=== PATIENT | female | born 1975 | race Caucasian/White ===

== ENCOUNTER 2017-07-28 09:41 | Inpatient (IN) ==
--- NOTE | 2017-07-28 08:32 | Discharge Summary ---
<Vicenta Buckley - Last Filed: 07/28/17 08:28> Orders not resulted at time of discharge: Pending orders 07/28/17 08:28 XR hip complete RT [XR] Routine H/H [Hemoglobin and Hematocrit] [HEME] Routine Date of Encounter: 07/28/17 - Discharge Diagnosis (1) Arthritis of right hip Priority: Primary Status: Acute (2) Status post total hip replacement, right Priority: Primary Status: Acute (3) HTN (hypertension) Priority: Secondary Status: Chronic Qualifiers: Hypertension type: essential hypertension Qualified Code(s): I10 - Essential (primary) hypertension (4) Obesity Priority: Secondary Status: Chronic Qualifiers: Obesity type: unspecified obesity type Obesity classification: unspecified obesity classification Serious obesity comorbidity presence: without serious comorbidity Qualified Code(s): E66.9 - Obesity, unspecified - Hospital Course Hospital course: Ms. Hernández is a 42 year old female - Time Spent with Patient Total time spent providing and/or coordinating discharge services: - Discharge Medications Home Medications: Aspirin Enteric Coated [Aspirin EC] 325 mg PO BID #20 tablet. 07/28/17 [Rx] BuPROPion SR (12 HR) [Wellbutrin SR] 150 mg PO BID 07/28/17 [History] Etonogestrel/Ethinyl Estradiol [Nuvaring Vaginal Ring] 1 each VG QMONTH [History] Furosemide [Lasix] 20 mg PO DAILY PRN 07/28/17 [History] HYDROcodone/Acet 5/325 mg [[place] 5-325 mg] 1 tab PO Q6H PRN 07/28/17 [History] OxyCODONE Immed Rel [Roxicodone 5 MG] 5 mg PO Q6HR PRN 7 Days #28 tablet [Rx] hydroCHLOROthiazide [Hydrochlorothiazide] 25 mg PO DAILY 07/28/17 [History] Allergies/Adverse Reactions: 3 Allergy/AdvReac Type Severity Reaction Status Date / Time azithromycin [From Zithromax] AdvReac Gastrointestinal Verified 07/14/17 15:13 Upset ciprofloxacin AdvReac Gastrointestinal Verified 07/14/17 15:13 Upset Primary care physician: Candis Aleman - Patient Status Disposition: Home Health Service Condition: Good - Discharge Instructions Follow Up With: Candis Aleman MD [Primary Care Provider] - <BobbyJarad Piper - Last Filed: 07/29/17 07:57> Orders not resulted at time of discharge: Pending orders 07/28/17 08:28 XR hip complete RT [XR] Routine H/H [Hemoglobin and Hematocrit] [HEME] Routine 07/28/17 10:14 POC Urine [POC] Stat Date of Encounter: 07/29/17 Time of Encounter: 07:57 - Discharge Diagnosis (1) Morbid obesity with BMI of 40.0-44.9, adult Priority: Secondary Status: Chronic (2) Arthritis of right hip Priority: Primary Status: Chronic (3) Status post total hip replacement, right Priority: Primary Status: Acute (4) HTN (hypertension) Priority: Secondary Status: Chronic Qualifiers: Hypertension type: essential hypertension Qualified Code(s): I10 - Essential (primary) hypertension - Hospital Course Hospital course: Ms. Hernández is a 42 year old female Status post right total hip replacement The patient had an uneventful postoperative course. They received antibiotics and physical therapy and were discharged in stable condition. There will follow -up in the office in 2 weeks. - Time Spent with Patient Total time spent providing and/or coordinating discharge services: Primary care physician: Candis Aleman - Patient Status Functional capacity at discharge: uses cane/walker Overall status at discharge: patient is progressing back to baseline
[~2017-07-28 09:41] MED LIST: *HR* Enoxaparin 30 MG/0.3 ML SYRINGE SQ SCH
[2017-07-28] MEDS ORDERED: CeFAZolin Syr 2,000MG/20 ML 2,000 MG/20 ML SYRINGE IVPB ONE (09:59)
[2017-07-28] MEDS ORDERED: Ringers Solution, Lactated 1,000 ML IVC SCH ×2 (10:00→14:14)
--- NOTE | 2017-07-28 10:13 | History & Physical Report ---
Date of Encounter: 07/28/17 Time of Encounter: 10:12 24 Hour HP Update - Instructions Instructions: If the History and Physical is less than 30 days old and was completed prior to A.M. admission and or procedure and has NOT been updated on calendar day of procedure please complete this update prior to performing procedure. - Update Patient reports changes in Medical Condition: No Changes in examination, assessment, or condition: No Changes in Medication: No Preop tests/diagnostics Reviewed: Yes Surgery Remains Indicated: Yes Consent for Planned Operative Procedure(s) Verified: Yes - Pre-Operative Checklist Preoperative Checklist Indicated: No Prophylactic Antibiotic Ordered: Yes Is VTE Prophylaxis Indicated?: Yes
[2017-07-28] MEDS ORDERED: *HR* OxyCODONE/APAP 5/325 TABLET PO PRN ×2 (10:37→14:14)
[2017-07-28] MEDS ORDERED: Ondansetron 4 MG/2 ML VIAL IVP PRN ×2 (10:37→14:14)
--- NOTE | 2017-07-28 10:40 | Anesthesia Evaluation PreOp ---
Date of Encounter: 07/28/17 Time of Encounter: 10:38 - Past History Planned Operation: Robotic right total hip arthroplasty Cardiac History: Denies any Significant Hx Pulmonary History: YAZMIN Dx (does not use CPAP) [employer] History: Other (depression, migraines) Other Medical History: Diabetes Type II (pre-diabetic, takes no medications), Other (BMI 42) Anesthesia History: Problems (nausea with general anesthesia) Alcohol Use: none Drug use: none Medications and Allergies Aspirin Enteric Coated [Aspirin EC] 325 mg PO BID #20 tablet. 07/28/17 [Rx] BuPROPion SR (12 HR) [Wellbutrin SR] 150 mg PO BID 07/28/17 [History] Etonogestrel/Ethinyl Estradiol [Nuvaring Vaginal Ring] 1 each VG QMONTH [History] Furosemide [Lasix] 20 mg PO DAILY PRN 07/28/17 [History] HYDROcodone/Acet 5/325 mg [[place] 5-325 mg] 1 tab PO Q6H PRN 07/28/17 [History] OxyCODONE Immed Rel [Roxicodone 5 MG] 5 mg PO Q6HR PRN 7 Days #28 tablet [Rx] hydroCHLOROthiazide [Hydrochlorothiazide] 25 mg PO DAILY 07/28/17 [History] 3 Allergy/AdvReac Type Severity Reaction Status Date / Time azithromycin [From Zithromax] AdvReac Gastrointestinal Verified 07/14/17 15:13 Upset ciprofloxacin AdvReac Gastrointestinal Verified 07/14/17 15:13 Upset - Meds/Allergy Pre-op Review Medications Reviewed: Yes Allergies Reviewed: Yes Beta Blockers on Current Med List: No Anesthesia Results - Labs Laboratory Tests 07/14/17 07/14/17 07/14/17 16:08 16:08 16:08 WBC 6.5 Hgb 14.0 Hct 43.2 Plt Count 242 PT 10.6 INR 1.0 APTT 28.2 Potassium 3.5 Chloride 110 H Carbon Dioxide 26 BUN 17 Creatinine 0.55 L Est GFR ( Amer) > 60 Est GFR (Non-Af Amer) > 60 BUN/Creatinine Ratio 31 H Est Mean Plasma Glucose Serum , Qual 07/14/17 07/14/17 16:08 16:08 WBC Hgb Hct Plt Count PT INR APTT Potassium Chloride Carbon Dioxide BUN Creatinine Est GFR ( Amer) Est GFR (Non-Af Amer) BUN/Creatinine Ratio Est Mean Plasma Glucose 137 Serum , Qual Negative - Imaging EKG: report reviewed, image reviewed (SR) Anesthesia Exam Last Vital Signs Temp 98.5 F 07/28/17 10:16 Pulse 99 07/28/17 10:16 Resp 18 07/28/17 10:16 BP 127/84 07/28/17 10:16 Pulse Ox 96 07/28/17 10:16 Weight: 106 kg NPO (# of Hours): > 8 hrs - HEENT Pupil (Motor): Pupils equal, EOMI Mallampati: III Teeth: Normal - [employer] LOC: Oriented - Cardiac Rhythm: Regular Murmur: None - Pulmonary Breath Sounds: bilateral Clear Respiratory Effort: Symmetrical Anesthesia Assess/Plan ASA Score: 3 Modified [place] Scale for Level of Consciousness: Cooperative, oriented, and tranquil Anesthetic Plan: General (Plan B - if need to do general (if spinal does not work), will add scop patch), Regional (Spinal with intrathecal PF morphine with sedation is Plan A), MAC (Spinal with MAC is plan A) Monitoring Plan: Standard Monitors Recovery Plan: PACU
[2017-07-28] MEDS ORDERED: Lidocaine -MPF 2% 2 ML VIAL ONE ×2 (10:41→10:42)
[2017-07-28] MEDS ORDERED: Dexamethasone 4 MG/ML VIAL ONE (10:41)
[2017-07-28] MEDS ORDERED: Ondansetron 4 MG/2 ML VIAL ONE (10:41)
[2017-07-28] MEDS ORDERED: *HR* Midazolam HCl 2 MG/2 ML VIAL ONE (10:42)
[2017-07-28] MEDS ORDERED: *HR* Propofol 200 MG/20 ML VIAL IVP ONE ×3 (10:42→13:14)
[2017-07-28] MEDS ORDERED: *HR* FentaNYL (PF) 100 MCG/2 ML VIAL ONE (10:42)
[2017-07-28] MEDS ORDERED: Propofol 500 MG/50 ML INFUS..BTL ONE (10:44)
[2017-07-28] MEDS ORDERED: Lidocaine -MPF 1% 5 ML AMPUL ONE (11:15)
[2017-07-28] MEDS ORDERED: Morphine Sulfate/PF 5mg/10mL Vial ONE (11:15)
[2017-07-28] MEDS ORDERED: Ethanol\\Acetic Acid\\Na Ace\\Ben 1,000 ML IRRIG.SOLN IR ONE (11:23)
[2017-07-28] MEDS ORDERED: *HR* PHENYLEPHRINE 1,000 MCG/10 ML SYRINGE IVP ONE (11:47)
--- NOTE | 2017-07-28 12:34 | Anesthesia Procedures ---
Date of Encounter: 07/28/17 Time of Encounter: 11:30 Procedures: Anesthesia - Epidural/Spinal Patient ID/Chart reviewed: Yes Patient examined: Yes Consent Obtained: Yes Supplemental Oxygen: Nasal Cannula Supplemental Oxygen Rate (L/min): 2 Sedation: Versed (mg): 2 Sedation: Fentanyl (mcg): 100 Site Prep: Aseptic Technique, Sterile prep and drape, Povidone-Iodine 1% Patient position: upright Local Anesthetic: Lidocaine 1% Interspace Used: L4-L5 Blood: No CSF: Yes Paresthesia: No Spinal Needle Gauge: 24 (pencan 3 1/2 spinal needle) Spinal Dose: see procedure note Procedure: PIV PATENT, FLUIDS GIVEN, MONITORS ON, 2LNC. PATIENT SITTING UPRIGHT. STERILE PREP AND DRAP WITH IODINE. LIDOCAINE 1% 3ML TO BACK/INTERSPACE L4-L5. PENCAN 3 1/2 INTRODUCER/SPINAL NEEDLE TO INTERSPACE L4-L5 +CSF, NO HEME NO PARATHESIA. SPINAL DOSED AT 1130. MEDS GIVEN: BUPIVICAINE 0.5% PLAIN 2ML+200MCG DURAMORPH. PATIENT TOLERATING WELL. Vitals + FHT's: Vital Signs - Last 8 Hours Temp Pulse Resp BP Pulse Ox 07/28/17 11:58 88 16 90/37 98 07/28/17 11:55 89 16 90/49 97 07/28/17 11:53 83 16 93/46 97 07/28/17 11:50 81 16 85/59 97 07/28/17 11:49 98 16 83/49 97 07/28/17 11:43 107 16 96/47 98 07/28/17 11:40 102 16 97/41 98 07/28/17 11:37 109 18 110/52 98 07/28/17 11:34 107 18 142/93 96 07/28/17 11:27 98 18 99/85 98 07/28/17 10:16 98.5 F 99 18 127/84 96 Intake and Output 07/27/17 07/28/17 07/28/17 23:59 07:59 15:59 Other: Weight 106.141 kg Blood Glucose* 144 Patient Weight 07/28/17 23:59 Weight 106.141 kg
--- NOTE | 2017-07-28 13:02 | Orthopedic Operative Note ---
Date of procedure: 07/28/17 Pre-op diagnosis: Right hip arthritis Procedure: Procedure: Right Total Hip Replacment robotic-assisted Estimated blood loss: 200 cc Hardware: Metal and polyethylene replacement. Sadaf DM Cup: 54cup Femoral size7 stem Head: 8head with Tracey Procedural Notes: Grade 4 arthritic changes femoral head acetabular socket, 5 mm short operative leg as measured by CT scan preop procedure performed with robotic assistance. Operative procedure: The patient was brought to the operating room and placed on the operating room table. After general anesthesia was administered the patient was placed in the lateral decubitus position with the operative leg up. All pressure points were padded appropriately and the head was stabilized in the neutral position. The operative extremity was prepped and draped in the sterile surgical fashion patient received IV antibiotic prior to skin incision. 3 Steinmann pins were placed in the iliac crest 3 cm proximal to the anterior superior iliac spine this was for the robotic-assisted sensor. This was done through a small 2 cm incision. A standard posterior approach is made to the operative hip, the incision was made through the skin and subcutaneous tissue hemostasis was obtained with Bovie cautery. Using careful sharp dissection the fascia was identified and incised exposing the external rotators. The femoral checkpoint was placed leg length was measured at this time utilizing robotic assistance. The external rotators were released off the greater trochanter and tagged with # 2 FiberWire suture. The capsule was T'd open and the hip was brought into internal rotation. Patient noted to have grade 4 arthritic changes femoral head. The femoral neck cut was made at the appropriate level roughly 15 mm proximal to the lesser trochanter aced on preoperative templating. An anterior capsulotomy was performed for the anterior retractor. Soft tissues removed from the acetabulum. Patient noted to have grade 4 arthritic changes acetabulum. The acetabulum checkpoint was placed confirmed. The acetabulum was then mapped with robotic assistance. Based on the preoperative plan the acetabulum was reamed in one step with a 53 reamer. The 54 acetabulum was impacted with robotic assistance and 50 degrees of abduction and 15 degrees of anteversion. The hip was brought back in to internal rotation and prepared with the box car checker followed by the canal finder followed by the reaming process to a size 7/ 8 broaching process in 20 degrees anteversion. It was broached up to the appropriate size 7. Trial reduction revealed leg lengths close to normal. The femoral implant was impacted in place in 20 degrees of anteversion. Trial reduction found the hip to be stable with 8 head and Tracey. The trials were removed and the real implants were impacted in place. The hip was reduced, patient had robotic confirmed leg length of 0 mm longer than the contralateral side. The hip had excellent stability with forward flexion to 90 degrees adduction of 30 degrees and internal rotation of 60 degrees. The hip had no shuck. The hips after 2 minutes with a antibacterial solution. It was irrigated out with 2 L of pulse irrigation. The checkpoints were removed, Steinmann pins were removed. The hip was closed by the PA. The deep tissue was irrigated and closed deep with #1 PDS suture superficially with 0 PDS suture and skin was closed with Dermabond and zip tie. The patient was placed in a sterile dressing and abduction pillow. The patient was extubated and transferred to the recovery room in stable condition. Anesthesia: spinal Surgeon: Jarad Rosales Was there an day care assistant present: Yes Stamping Operator: Vicenta Buckley Estimated blood loss (cc): 200 Condition: stable Disposition: PACU
[2017-07-28] MEDS ORDERED: Sennosides 8.6 MG TABLET PO PRN (14:14)
[2017-07-28] MEDS ORDERED: Temazepam 15 MG CAPSULE PO PRN (14:14)
[2017-07-28] MEDS ORDERED: Naloxone 0.4 MG/ML INJ IVP PRN (14:14)
[2017-07-28] MEDS ORDERED: Furosemide 20 MG TABLET PO PRN (14:14)
[2017-07-28] MEDS ORDERED: ETHINYL ESTRADIOL VG SCH (14:14)
[2017-07-28] MEDS ORDERED: MOM Conc 10 ML UD.LIQ PO PRN (14:14)
[2017-07-28] MEDS ORDERED: ETONOGESTREL VG SCH (14:14)
[2017-07-28 15:04] LABS: Hematocrit 40.5 % (35.3-44.9); Hemoglobin 12.7 g/dL (11.5-15.4)
[2017-07-28] MEDS: traMADol 50 MG TABLET PO PRN (15:28)
--- NOTE | 2017-07-28 16:51 | Anesthesia Evaluation Post Op ---
Date of Encounter: 07/28/17 Time of Encounter: 14:10 - Vital Signs Vital Signs: Last Vital Signs Temp 97.9 F 07/28/17 15:25 Pulse 104 07/28/17 15:25 Resp 17 07/28/17 15:25 BP 124/78 07/28/17 15:25 Pulse Ox 97 07/28/17 15:25 - Lungs Lungs: Clear Ascult./Percussion - Airway Airway: Non-obstructed - Cardiovascular Regular Rate - Mental Status Mental Status: Alert & Oriented, Answers Appropriately - Pain Pain Scale: 2 - Nausea Vomiting Nausea Vomiting: Not Present - Hydration Hydration: NPO - Discharge PostOp Status: Transfer Patient to floor
[2017-07-28] MEDS: *HR* Enoxaparin 30 MG/0.3 ML SYRINGE SQ SCH (17:49)
[2017-07-28] MEDS: Ascorbic Acid 500 MG TABLET PO SCH (17:49)
[2017-07-28] MEDS: BuPROPion SR (12 HR) 150 MG TABLET PO SCH (20:18)
[2017-07-28] MEDS: *HR* OxyCODONE Immed Rel 5 MG TABLET PO PRN (20:18)
[2017-07-28] MEDS: CeFAZolin Premix DUPLEX 2,000 MG/50 ML BAG IVPB SCH (20:18)
[2017-07-29] MEDS: *HR* OxyCODONE Immed Rel 5 MG TABLET PO PRN ×2 (03:50→08:54)
[2017-07-29] MEDS: CeFAZolin Premix DUPLEX 2,000 MG/50 ML BAG IVPB SCH (05:07)
[2017-07-29] MEDS: *HR* Enoxaparin 30 MG/0.3 ML SYRINGE SQ SCH (05:07)
[2017-07-29 05:45] LABS: Hematocrit 38.8 % (35.3-44.9); Hemoglobin 12.3 g/dL (11.5-15.4)
[2017-07-29 05:58] LABS: BUN/Creatinine Ratio 26 (6-26); Blood Urea Nitrogen 16 mg/dL (6-20); Calcium 8.7 mg/dL (8.6-10.3); Carbon Dioxide 28 mEq/L (23-29); Chloride 106 mEq/L (98-107); Glucose 166 mg/dL (70-105); Osmolality,Calculated 295 (280-300); Potassium 3.4 mEq/L (3.5-5.1); Sodium 140 mEq/L (136-145); eGFR For African Americans > 60 (> 60); eGFR For Non-African Americans > 60 (> 60)
[2017-07-29 07:03] VITALS: BP 129/78
--- NOTE | 2017-07-29 08:01 | Orthopedics Progress Note ---
Date of Encounter: 07/29/17 Time of Encounter: 08:00 - Assessment and Plan (1) Morbid obesity with BMI of 40.0-44.9, adult Current Visit: Yes Status: Chronic (2) Arthritis of right hip Current Visit: No Status: Chronic (3) Status post total hip replacement, right Current Visit: No Status: Acute (4) HTN (hypertension) Current Visit: No Status: Chronic Qualifiers: Hypertension type: essential hypertension Qualified Code(s): I10 - Essential (primary) hypertension Subjective Interval history: Patient was seen this morning doing well without complaints. Afebrile vital signs stable. Operative extremity: Neurovascularly intact Dressing clean dry and intact Calves nontender Assessment and plan: Continue with postoperative care Discharged today Objective Vital signs: Vital Signs Temp Pulse Resp BP Pulse Ox 07/29/17 07:00 98.3 F 98 16 129/78 96 07/29/17 03:51 98.5 F 106 16 127/80 96 07/28/17 22:54 98.8 F 104 16 125/78 95 07/28/17 20:49 98.6 F 104 18 127/80 96 07/28/17 19:06 98.5 F 115 18 124/76 96 07/28/17 16:30 97.8 F 99 18 128/72 96 07/28/17 15:25 97.9 F 104 17 124/78 97 07/28/17 15:20 97.8 F 110 18 133/86 95 07/28/17 14:46 97.9 F 92 17 126/88 97 07/28/17 14:39 96 07/28/17 14:24 98.3 F 96 18 126/84 97 07/28/17 14:14 97 07/28/17 14:05 98 20 135/78 98 07/28/17 13:55 98.4 F 93 20 132/84 97 07/28/17 13:45 99 20 138/85 95 07/28/17 13:35 100 20 141/83 94 07/28/17 13:25 98.6 F 108 20 112/71 96 07/28/17 11:58 88 16 90/37 98 07/28/17 11:55 89 16 90/49 97 07/28/17 11:53 83 16 93/46 97 07/28/17 11:50 81 16 85/59 97 07/28/17 11:49 98 16 83/49 97 07/28/17 11:43 107 16 96/47 98 07/28/17 11:40 102 16 97/41 98 07/28/17 11:37 109 18 110/52 98 07/28/17 11:34 107 18 142/93 96 07/28/17 11:27 98 18 99/85 98 07/28/17 10:16 98.5 F 99 18 127/84 96 Intake and Output 07/28/17 07/29/17 07/29/17 23:59 07:59 15:59 Intake Total 890 / 890 Output Total 0 / 0 275 / 275 Balance 890 / 890 -275 / -275 Intake: IV Fluids 50 / 50 Ancef Premix DUPLEX 2,000 mg In 50 / 50 50 ml @ 100 mls/hr IVPB Q8H [facility] Rx#:[id number] Oral 840 / 840 Output: Urine 0 / 0 275 / 275 Other: Meal Dinner Percent of Meal Consumed 100% - Labs CBC & BMP: 07/29/17 05:12 07/29/17 05:12 Labs: Abnormal lab results Potassium 3.4 mEq/L (3.5-5.1) L 07/29/17 05:12 Glucose 166 mg/dL (70-105) H 07/29/17 05:12 POC Glucose 147 (58-89) H 07/28/17 14:55 - VTE Documentation of Mechanical Device: Venous foot pump, device Consult Discharge Plan - Plan Referrals: Candis Aleman MD [Primary Care Provider] -
[2017-07-29] MEDS: Ascorbic Acid 500 MG TABLET PO SCH (08:48)
[2017-07-29] MEDS: BuPROPion SR (12 HR) 150 MG TABLET PO SCH (08:48)
[2017-07-29] MEDS ORDERED: hydroCHLOROthiazide 25 MG TABLET PO SCH (09:00)
[2017-07-29] MEDS ORDERED: Multivit/Ca/Min/Fe/FA 1 TAB TABLET PO SCH (09:00)
[2017-07-29] MEDS ORDERED: Ondansetron ODT 4 MG TAB.RAPDIS SL ONE (10:37)
[2017-07-29] MEDS: traMADol 50 MG TABLET PO PRN (10:46)
== END 2017-07-29 13:09 | disposition home health service (06) | DRG 470 ==
LOC: SAMDAY 09:41 → 3NENU 14:13
PROVIDERS: ADMIT Orthopaedic Surgery; ATTEND Orthopaedic Surgery